=== PATIENT | female | born 1950 | race Caucasian/White ===

== ENCOUNTER 2016-05-17 21:53 | Inpatient (IN) | payer OTHER ==
[~2016-05-17] VITALS: Ht 167.6 cm; Wt 140.6 kg
--- NOTE | 2016-05-17 22:03 | NUR ---
PT BIB [facility] AND [facility] FIRE WITH PT C/O SOB SINCE MONDAY THAT BECAME WORSE TODAY. PER MEDICS PT O2 SAT AT 71% ON RA UPON ARRIVAL, GIVEN BREATHING TX OF ALBUTEROL AND ATROVENT, THEN REPEAT TX OF ALBUTEROL THAT BROUGHT PT O2 SATURATION TO 100%. PER MEDICS, PT WITH WHEEZING TO ALL IBRAHIM EN ROUTE. PT A&XO4,NO ACUTE DISTRESS NTOED, RESP TACHYPNEIC AND SHALLOW, WHEEZING NOTED TO ALL IBRAHIM ON AUSCULTATION. PT PLACED ON FULL CM AND ON NON-REBREATHER MASK WITH O2 SAT NOTED AT 75% ON RA AFTER MOVING FROM AMBULANCE [facility] TO ED [facility]. NOTIFIED OF PT O2 SATURATION. WILL CONTINUE TO MONITOR.
[2016-05-17 22:49] LABS: BASOPHIL % 1.2 % (0-2); PLATELET COUNT 210 x10^3mcL (130-400)
[2016-05-17 22:51] LABS: RED CELL DISTRIBUTION WIDTH 16.1 % (11.5-14.5)
--- NOTE | 2016-05-17 22:53 | NUR ---
PT ASSISTED TO BEDSIDE COMODE TO URINATE.
[2016-05-17 22:58] LABS: BILIRUBIN TOTAL 0.63 mg/dL (0.20-1.00); CALCIUM 8.6 mg/dL (8.5-10.1); CARBON DIOXIDE 35.8 mmol/L (21-32); CREATININE SERUM 1.4 mg/dL (0.6-1.0); POTASSIUM SERUM 3.7 mmol/L (3.5-5.1)
[2016-05-17 22:59] LABS: ALBUMIN 2.7 g/dL (3.4-5.0)
--- NOTE | 2016-05-17 23:00 | NUR ---
PT AMBULATED BACK TO [facility], PT GASPING AND HOLDING ONTO BED FOR SUPPORT, STATING "I FEEL A LITTLE LIGHT HEADED". PT ASSISTED BACK TO [facility], PLACED ON NON-REBREATHER AT THIS TIME.
--- NOTE | 2016-05-17 23:04 | NUR ---
PT MEDICATED PER ORDER. SEE [facility]. NO S/S OF ADV RXNS AT THIS TIME. WILL CONTINUE TO MONTIOR.
--- NOTE | 2016-05-17 23:10 | NUR ---
PT FRIEND NANCY ZEPEDA TO BE CONTACTED WHEN PT DISCHARGED AT [phone]
[2016-05-18] VITALS (8 sets, daily range): BP systolic 110–160; BP diastolic 61–86
--- NOTE | 2016-05-18 00:41 | NUR ---
PT MEDICATED PER ORDER. SEE EM[facility].
--- NOTE | 2016-05-18 01:09 | NUR ---
PT MEDICATED PER ORDER .SEE EM[facility].
[2016-05-18] MEDS ORDERED: ENALAPRIL MALE2.5 MG (01:25)
[2016-05-18] MEDS ORDERED: ATROVENT H0.017 MG/1 (01:25)
--- NOTE | 2016-05-18 01:30 | NUR ---
PT AMBULATED OUT OF GURNEY TO BEDSIDE COMMODE AND IV WITH ANGIOCATH REMOVED WHILE PT WAS AMBULATING. PT IV SITE BLEEDING CONTROLLED AT THIS TIME.
--- NOTE | 2016-05-18 02:04 | NUR ---
REPORT GIVEN TO ERIN LEUNG TO ASSUME CARE OF PT.
[2016-05-18 02:14] LABS: PHOSPHOROUS 3.3 mg/dL (2.5-4.9)
[2016-05-18 02:20] LABS: T3 TOTAL 0.7 ng/mL
--- NOTE | 2016-05-18 02:23 | NUR ---
PT TRANSFERRED TO TELE BED 244B VIA GURNEY WITH RN CHRISTINA AND EMT SHEELA AT PT SIDE. PT A&XO4,NO ACUTE DISTRESS NOTED, RESP EVEN AND UNLABORED, TRANSFERRED WITHOUT INCIDENCE.
[2016-05-18 02:27] LABS: FREE T4 1.52 ng/dL (0.76-1.46); FREE THYROXINE INDEX 2.8 ug/dL (1.4-4.5); T4(THYROXINE) 7.6 ug/dL (4.7-13.3)
[2016-05-18 02:30] LABS: CHOLESTEROL/HDL RATIO 4.8; MAGNESIUM 3.1 mg/dL (1.8-2.4)
--- NOTE | 2016-05-18 03:00 | NUR ---
RECEIVED PT FROM ER VIA CARLYN ACCOMPANIED BY ER NURSE. A/O X4. KEPT COMFORTABLE IN BED. ADMITTED WITH COMPLAINTS OF SOB X4DAYS. ON 02 AT 20LITERS VIA HIGH FLOW NASAL CANNULA. SAT. 94%. HOB ELEVATED.LUNGS SOUNDS WITH WHEEZES, RESP. TREATMENT GIVEN BY RT. AFEBRILE AND VITAL SIGNS STABLE. PLACED ON TELE #10, MONITOR SHOWS SR. DENIES CHEST PAIN OR PRESSURE. ABD. SOFT, OBESE, BS ACTIVE X ALL QUADS. NO N/V NOTED. HL TO RFA, INTACT AND PATENT. SKIN WARM AND DRY TO TOUCH, INTACT, NO EDEMA NOTED. AMBULATORY. ORIENTED TO ROOM AND ENVIRONMENT. BED IN LOW POSITION. CALL LIGHT WITHIN REACH. CALL LIGHT WITHIN REACH. WILL CONTINUE TO MONITOR.
--- NOTE | 2016-05-18 06:18 | NUR ---
AFEBRILE AND VITAL SIGNS STABLE. REMAINS SR ON THE MONITOR. DENIES CHEST PAIN OR ANY DISCOMFORT. [address] VIA HIGHFLOW NASAL CANNULA.RESP. TREATMENT GIVEN BY RT. JESSE. WELL. NO ACUTE DISTRESS NOTED. IVF INTACT AND INFUSING VIA RFA, SITE CLEAR. DUE MEDS GIVEN ORDERED, JESSE. WELL. KEPT COMFORTABLE. ASSISTED TO THE BATHROOM , VOIDING FREELY. CALL LIGHT WITHIN REACH. WILL CONTINUE TO MONITOR.
--- NOTE | 2016-05-18 07:17 | NUR ---
STARTED PT ON HEPARIN DRIP PROTOCOL ORDERED. WILL ENDORSE TO INCOMING NURSE.
--- NOTE | 2016-05-18 10:27 | NUR ---
AT 0730 - RECEIVED PATIENT FROM NIGHT NURSE. PATIENT AWAKE, ALERT AND ORIENTED MONITOR SHOWING SINUS RHYTHM; RATE 70'S. DENIES ANY CHEST PAIN. ON O2 VIA HIGH FLOW NASAL CANNULLA AT 100%. RESPIRATIONS REGULAR WITH SOB ON EXERTION. EXPIRATORY WHEEZE ON AUSCULTATION. IV INFUSING NS AT 100ML/HR WELL HEPARIN FOR ELEVATED TROPONIN LEVELS. CURRENT RATE AT 1800 UNITS. AT 0807 - RECEIVED CALL FROM LAB WITH TROPONIN LEVEL OF 0.465, TRENDING DOWNWARD. AT 0830 - DR AMBROSE MADE AWARE OF LATEST TROPONIN LEVEL. HEPARIN WILL BE D/C AT 0840 - SEEN BY DR PURI DURING MORNING ROUNDS. MEDICAL TEAM DOCTORS, ROYAL PITTMAN AND MYSELF PRIMARY NURSE ALSO PRESENT. DR PURI SPOKE WITH PATIENT ABOUT DIAGNOSIS OF PNEUMONIA AND PLANNED TREATMENT WELL ELEVATED TROPONIN LEVELS WHICH ARE DECREASING. PATIENT VERBALIZED UNDERSTANDING. HEPARIN INFUSION DISCONTINUED PER DR PURI ORDERS. PATIENT PLACED ON SC HEPARIN BID. AT 0930 - PATIENT AMBULATED TO BATHROOM WITH ASSISTANCE. TOLERATED WELL BUT GETS SOB ON EXERTION.
--- NOTE | 2016-05-18 14:24 | NUR ---
AT 1315 - PATIENT ASSISTED TO BATHROOM AND BACK TO BED. NOTED REDDNESS OF DORCAS BUTTOCKS AND UPPER THIGHS WITH BROKEN SKIN TO R UPPER THIGH. TENDER TO TOUCH. AREA PHOTO DOCUMENTED, WASHED AND Z-GUARD CREAM APPLIED. PATIENT PLACED ON AIR MATTRESS.
[2016-05-18 15:18] LABS: PLATELET COUNT 187 x10^3mcL (130-400)
[2016-05-18 15:23] LABS: RED CELL DISTRIBUTION WIDTH 16.1 % (11.5-14.5)
[2016-05-18 15:55] LABS: BAND NEUTROPHIL 13 % (0-10); BASOPHIL 0 % (0-2); MONOCYTE 1 % (0-7); SEGMENTED NEUTROPHILS 79 % (37-75)
[2016-05-18 15:57] LABS: rbc morphology (normal/abnorm) ABNORMAL (NORMAL)
[2016-05-18 16:02] LABS: PLATELET MORPHOLOGY PLATELETS NORMAL
[2016-05-18 18:53] LABS: AMPHETAMINE QUAL UR NONE DETECTED (NEG <=1000)
[2016-05-18 19:01] LABS: microscopic required? YES; urine erythrocyte NEGATIVE (NEGATIVE)
--- NOTE | 2016-05-18 19:26 | NUR ---
DR ULLOA AT BEDSIDE. CARE ENDORSED TO NIGHT NURSE.
--- NOTE | 2016-05-18 19:27 | NUR ---
AT 1530 - PLACED ON NPO FOR ULTRASOUND OF ABDOMEN. PATIENT SLEEPING. RESPIRATIONS REGULAR. AT 1750 - PATIENT ATE DINNER, SO ULTRASOUND NEEDS TO BE POSTPONED. URINE COLLECTED AND TAKEN TO LAB FOR UA. AT 1920 - PATIENT RESTING QUIETLY. VSS. AFEBRILE. IV INFUSING NS AT 100ML/HR. AMBULATES TO BATHROOM FOR TOILET NEEDS. NO C/O PAIN. CARE ENDORSED TO NIGHT NURSE.
--- NOTE | 2016-05-18 19:41 | NUR ---
AWAKE AND VERBALLY RESPONISVE. ABLE TO MAKE NEEDS KNOWN. CONTINUES ON HI-FLOW NC AT 100% FIO2, (20L/NC), NO S/S OF ACUTE RESPIRATORY DISTRESS. REMAINS ON AIR MATTRESS FOR MANAGEMENT OF IMPAIRED SKIN INTEGRITY , WITH REDDENED BUTTOCKS/UPPERT THIGHS . STILL WAITING FOR ABDOMINAL ULTRASOUND TO BE DONE, INSTRUCTED TO BE NPO EXCEPT MEDICATIONS AT THIS TIME. PT COOPERATIVE WITH PLAN OF CARE.
--- NOTE | 2016-05-18 22:29 | NUR ---
AMBULATED ALONG THE HALLWAY AND TOLERATED WELL. DUE MEIDCATIONS GIVEN ORDERED. WILL CONTINUE TO MONITOR.
--- NOTE | 2016-05-19 00:01 | NUR ---
EYES CLOSED, NO FACIAL GRIMACING NOTED. RESPIRATION EVEN AND UNLABORED.CONTINUES ON ATB IVPB WITYHOUT ADVERSE REACTION NOTED.
--- NOTE | 2016-05-19 06:12 | NUR ---
REMAINS NPO FOR COMPLETE ABDOMINAL US DUE ELEVATED LIVER ENZYMES. PATIENT COOPERATIVE WITH PLAN OF CARE. ALL NEEDS ATTENDED.
[2016-05-19 07:02] VITALS: BP 150/69
[2016-05-19 07:10] LABS: PLATELET COUNT 193 x10^3mcL (130-400)
[2016-05-19 07:11] LABS: CALCIUM 7.8 mg/dL (8.5-10.1); CARBON DIOXIDE 31.1 mmol/L (21-32); CREATININE SERUM 1.2 mg/dL (0.6-1.0); MAGNESIUM 3.2 mg/dL (1.8-2.4); PHOSPHOROUS 4.5 mg/dL (2.5-4.9); POTASSIUM SERUM 4.2 mmol/L (3.5-5.1)
[2016-05-19 07:14] LABS: RED CELL DISTRIBUTION WIDTH 15.4 % (11.5-14.5)
--- NOTE | 2016-05-19 07:22 | NUR ---
AT 0710 - RECEIVED PATIENT FROM NIGHT NURSE. PATIENT AWAKE, ALERT AND ORIENTED. MONITOR SHOWING SINUS BRADYCARDIA. SOME SOB NOTD. PATIENT HAS JUST BEEN SWITCHED FROM BIPAP TO HIGH FLOW O2 VIA NC AT 100%. ULTRASOUND IN ROOM FOR ABDOMINAL ULTRASOUND.
--- NOTE | 2016-05-19 08:09 | NUR ---
PATIENT HAS EATEN BREAKFAST. AMBULATED TO BATHROOM AND BACK TO BED. DYSPNEA ON EXERTION. SKIN OF RED AREA ON BUTTOCKS AND UPPER THIGHS, NOTED TO BE DRY AND PEELING TODAY. Z-GUARD APPLIED. PATINET MADE COMFORTABLE.
--- NOTE | 2016-05-19 09:56 | NUR ---
AT 0815 - SEEN BY DR PURI DURING MORNING ROUNDS. MEDICAL TEAM DOCTORS, ROYAL PITTMAN AND MYSELF PRIMARY NURSE ALSO PRESENT. DR PURI SPOKE WITH PATIENT ABOUT PLAN OF CARE. PATIENT ENCOURAGED TO SIT IN CHAIR AND AMBULATE TODAY. PATIENT VERBALIZED UNDERSTANDING.
[2016-05-19 09:58] VITALS: BP 137/69
[2016-05-19 12:07] LABS: ATYPICAL LYMPH 2 %; BAND NEUTROPHIL 3 % (0-10); BASOPHIL 0 % (0-2); MONOCYTE 8 % (0-7); SEGMENTED NEUTROPHILS 83 % (37-75); rbc morphology (normal/abnorm) ABNORMAL (NORMAL)
[2016-05-19 12:08] LABS: PLATELET MORPHOLOGY PLATELETS DECREASED; ovalocyte/elliptocyte 1+
--- NOTE | 2016-05-19 12:18 | NUR ---
PATIENT SITTING IN CHAIR AT THIS TIME.
[2016-05-19 12:28] VITALS: BP 122/74
--- NOTE | 2016-05-19 13:20 | NUR ---
BACK IN BED AFTER SITTING IN CHAIR FOR ALMOST 2 HOURS. TOLERATED WELL BUT APPEARS TIRED NOW. HAS DRY COUGH. EATING WELL. USES OF INSENTIVE SPIROMETER ENCOURAGED.
[2016-05-19 18:15] VITALS: BP 125/61
--- NOTE | 2016-05-19 18:23 | NUR ---
VSS. AFEBRILE. REPROTS FEELING BETTER THIS PM. REMAINS ON HIGH FLOW O2. FOR BIPAP AT NIGHT. AMBULATED SHORT DISTANCES. IV INFUSION REMAINS AT 100ML/HR. VOIDING IN BATHROOM. NO C/O PAIN. WILL ENDORSE CARE TO NIGHT NURSE.
--- NOTE | 2016-05-19 20:00 | NUR ---
RECIEVED SITTING AT THE EDGE OF THE BED DURING SHIFT REPORT. ALERT AND VERBALLY RESPONSIVE. ABLE TO MAKE NEEDS KNOWN. ABLE TO USE INCENTIVE SPIROMETER AND TOLERATING WELL. FAMILY AT BEDSIDE VERY SUPPORTIVE OF PATIENT'S PLAN OF CARE. CALL LIGHT WITHIN REACH, INSTRUCTED TO USE CALL LIGHT TO COMMUNICATE NEEDS AND VERBALIZED UNDERSTANDING.
[2016-05-19 21:04] VITALS: BP 149/53
--- NOTE | 2016-05-20 00:39 | NUR ---
ASSSISTED TO BATHROOM FOR BLADDER ABD BOWEL ELIMINATION. KEPT CLEAN AND DRY. CALL LIGHT WITHIN REACH AT ALL TIMES. WILL CONTINUE TO DO FRQUENT VISUAL CHECK FOR SAFETY.
--- NOTE | 2016-05-20 01:40 | NUR ---
PLACED ON 02 AT 8L/VIA OXYMIZER, AND TOLERATED WELL. NO S/S OF RESPIRATORY DISTRESS.
[2016-05-20 05:34] VITALS: BP 143/76
[2016-05-20 06:25] LABS: BASOPHIL % 1.7 % (0-2); PLATELET COUNT 183 x10^3mcL (130-400)
--- NOTE | 2016-05-20 06:33 | NUR ---
ASSISTED TO BEDSIDE COMMODE FOR BLADDER AND BOWEL ELIMINATION. KEPT CLEAN AND DRY. DENIES ANY PAIN/DISCOMFORT AT THIS TIME. ALL NEEDS ATTENDED,.
[2016-05-20 06:44] LABS: CALCIUM 7.5 mg/dL (8.5-10.1); CARBON DIOXIDE 31.5 mmol/L (21-32); MAGNESIUM 2.8 mg/dL (1.8-2.4); PHOSPHOROUS 4.2 mg/dL (2.5-4.9)
[2016-05-20 06:58] LABS: RED CELL DISTRIBUTION WIDTH 17.1 % (11.5-14.5)
[2016-05-20 08:52] VITALS: BP 144/66
--- NOTE | 2016-05-20 09:58 | NUR ---
ATTEMPTED ABG X2, UNABLE TO OBTAIN SAMPLE.
--- NOTE | 2016-05-20 10:31 | NUR ---
PT'S PCO2 LEVEL ON HER AM'S ABG AT 56.1, DR PERALTA OVER TEL. INFORMED AND AWARE.
[2016-05-20 13:02] VITALS: BP 153/68
[2016-05-20 16:06] VITALS: BP 151/69
--- NOTE | 2016-05-20 19:15 | NUR ---
PT ON BED RESTING COMFORTABLY AFTER DINNER,IN NO DISTRESS,ON O23LNC SATS 95%,DENIES C.P. NO DRAMATIC CONDITION CHANGE ON THIS 12 HR SHIFT. BEDSIDE ENDORSEMENT DONE WITH [facility] NURSE KEARNEY/ANALILIA.
--- NOTE | 2016-05-20 20:28 | NUR ---
RECEIVED PT FROM PREVIOUS SHIFT NURSE. PT AOX4. TELE #10, SR WITH BB, HR71. DENIES CP/PRESSURE. LUNG SOUNDS DIMINISHED WITH WHEEZES ON 3L NC. DENIES SOB. BOWEL SOUNDS ACTIVE. GENERALIZED WEAKNESS. AMBULATORY WITH ASSISTANCE, BSC. SOME REDNESS TO BUTTOCKS, Z-GUARD AND AIR MATTRESS IN PLACE. IV IN LAC, INTACT AND PATENT. BED IN LOWEST POSITION. CALL LIGHT WITHIN REACH. WILL CONTINUE TO MONITOR.
[2016-05-20 21:11] VITALS: BP 174/84
--- NOTE | 2016-05-21 03:56 | NUR ---
PT RESTING IN BED. RR EVEN AND UNLABORED. NO ACUTE DISTRESS NOTED. IV INTACT AND PATENT. CALL LIGHT WITHIN REACH. BED IN LOWEST POSITION. WILL CONTINUE TO MONITOR.
--- NOTE | 2016-05-21 05:47 | NUR ---
BP 184/84, MAP 115, HR 65. PT C/O WALKER. NEURO CHECKS WNL. DR MONTEJO PAGED AT THIS TIME. WILL CONTINUE TO MONITOR
--- NOTE | 2016-05-21 05:50 | NUR ---
DR MONTEJO MADE AWARE OF BP AT THIS TIME. PT IN NO ACUTE DISTRESS. WILL CONTINUE TO MONITOR.
[2016-05-21 05:59] VITALS: BP 184/84
[2016-05-21 06:20] LABS: PLATELET COUNT 190 x10^3mcL (130-400)
[2016-05-21 06:35] LABS: CALCIUM 8.2 mg/dL (8.5-10.1); CHLORIDE SERUM 109 mmol/L (98-107); CREATININE SERUM 0.9 mg/dL (0.6-1.0); GFR1 > 60 mL/min; GLUCOSE SERUM 146 mg/dL (74-106); MAGNESIUM 2.7 mg/dL (1.8-2.4); PHOSPHOROUS 3.8 mg/dL (2.5-4.9); SODIUM SERUM 147 mmol/L (136-145)
[2016-05-21 06:43] LABS: BASOPHIL % 0 % (0-2); RED CELL DISTRIBUTION WIDTH 16.1 % (11.5-14.5)
--- NOTE | 2016-05-21 07:30 | NUR ---
RECEIVED PT AAOX4. RESP EVEN AND UNLABORED ON 3L NC. SOB ON EXERTION. DENIES PAIN AT THIS TIME. IVF INFUSING. PT AMBULATES TO BSC WITH MIN ASSISTANCE. ON AIR MATTRESS. BED IN LOWEST POSITION, CALL LIGHT WITHIN REACH. WILL CONTINUE TO MONITOR.
[2016-05-21 08:30] VITALS: BP 173/86
[2016-05-21 12:29] VITALS: BP 166/78
--- NOTE | 2016-05-21 12:34 | NUR ---
PT RESTING IN BED. NO ACUTE DISTRESS. RESP EVEN AND UNLABORED ON 2L NC. NO SOB NOTED AT THIS TIME. IVF INFUSING. WILL CONTINUE TO MONITOR.
--- NOTE | 2016-05-21 13:52 | NUR ---
ORDER FOR 3 PART TESTING COMPLETE WITH THE FOLLOWING RESULT: SPO2 ON RA RESTING = 92% SPO2 ON RA AMBULATING = 87% SPO2 ON 3L NC WITH AMBULATION = 91%
[2016-05-21 15:16] VITALS: BP 158/73
[2016-05-21 17:18] VITALS: BP 155/67
--- NOTE | 2016-05-21 18:54 | NUR ---
PT RESTING IN BED. NO ACUTE DISTRESS. NO ACUTE RESP DISTRESS ON 2L NC. SOB ON EXERTION. IVF INFUSING. ON AIR MATTRESS. BED IN LOWEST POSITION, CALL LIGHT WITHIN REACH. WILL ENDORSE TO INCOMING SHIFT.
--- NOTE | 2016-05-21 19:26 | NUR ---
RECEIVED PT FROM PREVIOUS SHIFT NURSE. PT AOX4. TELE #10, SR WITH BB, [id number]. DENIES CP/PRESSURE. PULSES STRONG, NO EDEMA NOTED. LUNG SOUNDS DIMINISHED WITH WHEEZES ON 2L NC. DENIES SOB. BOWEL SOUNDS ACTIVE. GENERALIZED WEAKNESS. AMBULATORY WITH ASSISTANCE. REDNESS TO BUTTOCKS AND SKIN TEAR ON THIGHS. AIR MATTRESS IN PLACE. IV IN RFA, INTACT AND PATENT. BED IN LOWEST POSITION. CALL LIGHT WITHIN REACH. WILL CONTINUE TO MONITOR.
[2016-05-21 20:31] VITALS: BP 156/62
--- NOTE | 2016-05-21 20:57 | NUR ---
PT Eval Notes [id number] Patient is a 65 y/o female admitted with PNA/SOB. Patient live alone in 2nd floor apt, PLOF indep with gait and all ADL/IADLs, works with special education. Patient with possible needs for home O2. Prec: fall risk, 2PA for safety, O2 w/ activity as needed. S: Patient cleared by RN, and patient agreeable to PT POC as best able. Denies any pain. O: Patient appears a/o, educated on PT POC/safety/PLB/energy conservation techs with good return understanding. BP 183/74/78, RA at rest SpO2 92-94%, intiating activity desat to 86%, 3L O2 with gait with SpO2 90-92%. Bed mobility supine<>sit: min assist Transfers sit<>stand, bed<>commode: min assist Gait: 6MWT x 345' w/o AD, multiple standing rest breaks, min/mod v/t for PLB and energy conervation techs, decreased cesia. SOB upon exertion. Patient able to get BTB with min assist, all lines in place, call light in hand, nursing aware. A: PT eval completed. Patient presents with gen weakness and overall decreased act jose carlos, requiring O2 with activity d/t desaturation SpO2 <88%, able to maintain SpO2 with activity 90-92% with 3L O2 via NC, unable to jose carlos on RA. Recomm home with assist as needed, HHPT for home safet eval, no DME needs at home, possible home O2. P: Patient to be seen per PT POC, benefit from skilled PT, once daily 6x/wk x 1wk for ther ex/activity, gait/endurance trng, and patient/fam edu. Eval45' [id number], [id number] TUG 13" [id number] Patient jose carlos further gait trng post 6MWT, total of 460' w/o AD. Patient requiring min/mod v/t cues for PLB/energy conservation techs. Patient requiring 3L O2 via NC with SpO2 90-92 with freq standing rest breaks, noted decreased cesia. GT10'
--- NOTE | 2016-05-22 03:04 | NUR ---
PT RESTING IN BED. RR EVEN AND UNLABORED. NO ACUTE DISTRESS NOTED. PT ON 2L NC. IV INTACT AND PATENT. CALL LIGHT WITHIN REACH. BED IN LOWEST POSITION. WILL CONTINUE TO MONITOR.
--- NOTE | 2016-05-22 05:22 | NUR ---
PT BP 196/85, DR. HERNANDEZ AWARE. VASOTEC 5MG AND LOPRESSOR 25MG ADMINISTERED PER DR. HERNANDEZ ORDERS. WILL CONTINUE TO MONITOR.
[2016-05-22 05:39] VITALS: BP 196/85
[2016-05-22 05:47] LABS: BASOPHIL % 1.7 % (0-2); PLATELET COUNT 194 x10^3mcL (130-400)
[2016-05-22 05:50] LABS: RED CELL DISTRIBUTION WIDTH 16.2 % (11.5-14.5)
[2016-05-22 06:02] LABS: CALCIUM 8.2 mg/dL (8.5-10.1); CARBON DIOXIDE 32.7 mmol/L (21-32); CHLORIDE SERUM 108 mmol/L (98-107); CREATININE SERUM 0.9 mg/dL (0.6-1.0); GFR1 > 60 mL/min; GLUCOSE SERUM 124 mg/dL (74-106); MAGNESIUM 2.3 mg/dL (1.8-2.4); PHOSPHOROUS 4.1 mg/dL (2.5-4.9); POTASSIUM SERUM 4.9 mmol/L (3.5-5.1); SODIUM SERUM 147 mmol/L (136-145)
--- NOTE | 2016-05-22 06:32 | NUR ---
BP 214/86 AFTER VASOTEC AND LOPRESSOR ADMINISTERED. DR. DAVID COREA.
--- NOTE | 2016-05-22 07:20 | NUR ---
RECEIVED PT RESTING IN BED. NO ACUTE DISTRESS. RESP EVEN AND UNLABORED ON 2L NC AT REST. SOB ON EXERTION. IVF INFUSING. ON AIR MATTRESS. BED IN LOWEST POSITION, CALL LIGHT WITHIN REACH. WILL CONTINUE TO MONITOR.
[2016-05-22 10:28] VITALS: BP 171/85
[2016-05-22] MEDS ORDERED: IPRATROPIUM BROM3 M2 HHN ×4 (13:16→13:18)
[2016-05-22] MEDS ORDERED: NOR5 PO (13:16)
[2016-05-22] MEDS ORDERED: V10 PO (13:16)
[2016-05-22] MEDS ORDERED: METOPROLOL TART25 M1 PO (13:17)
[2016-05-22] MEDS ORDERED: PRI20 PO (13:18)
[2016-05-22] MEDS ORDERED: PULMICORT0.5 MG/2 M IH (13:18)
[2016-05-22 13:21] VITALS: BP 158/86
--- NOTE | 2016-05-22 13:41 | NUR ---
PT AMBULATING IN HALLWAY WITH PORTABLE OXYGEN. DYSPNEA ON EXERTION. GAIT STEADY. WILL CONTINUE TO MONITOR.
[2016-05-22] MEDS ORDERED: LEVAQUIN250 M1 PO (14:19)
[2016-05-22] MEDS ORDERED: ALD25 PO (14:21)
[2016-05-22] MEDS ORDERED: CLEOCIN HCL300 MG PO (14:21)
[2016-05-22 16:39] VITALS: BP 158/86
[2016-05-22 16:57] VITALS: BP 158/86
[2016-05-22] MEDS ORDERED: LAC PO (17:24)
--- NOTE | 2016-05-22 18:30 | NUR ---
PT DISCHARGED TO HOME WITH HOME HEALTH IN NO ACUTE DISTRESS. AWAKE, ALERT, AND ORIENTED. VSS. TRANSPORTED VIA WHEELCHAIR. PT WITH HOME O2 EQUIPMENT. RX GIVEN. DISCHARGE EDUCATION PROVIDED, PT VERBALIZED UNDERSTANDING. WRITTEN DISCHARGE INSTRUCTIONS ALSO PROVIDED. INSTRUCTED PT TO FOLLOW UP WITH PCP. BELONGINGS WITH PT. IV DC'D INTACT. TELE REMOVED. NUNO COLÓN ACCOMPANIED PT TO [facility].
== END 2016-05-22 18:30 | disposition home health service (06) | DRG 871 ==
LOC: ED 21:53 → DU 05-18 00:59
PROVIDERS: Emergency Medicine; Family Medicine; ADMIT Family Medicine
DX: A41.9 Sepsis, unspecified organism (principal); J96.00 Acute respiratory failure, unspecified whether with hypoxia or hypercapnia; I50.41 Acute combined systolic (congestive) and diastolic (congestive) heart failure; E43 Unspecified severe protein-calorie malnutrition; N17.0 Acute kidney failure with tubular necrosis; J45.901 Unspecified asthma with (acute) exacerbation; R73.03 Prediabetes; R65.20 Severe sepsis without septic shock; I73.9 Peripheral vascular disease, unspecified; I11.0 Hypertensive heart disease with heart failure; K76.0 Fatty (change of) liver, not elsewhere classified; E03.8 Other specified hypothyroidism; E83.41 Hypermagnesemia
CPT/HCPCS: 36600; 80307; 82962; 83880; 84439; 94150; 97116-GP; J0360; J1644; J1956; J2920; J2930; J3105; J3490; J7030; J7613; J7620; J7626; J7644; Q0092